=== PATIENT | female | born 1930 | race Caucasian/White ===

== ENCOUNTER 2017-04-29 20:29 | Emergency (ER) | payer BC, MEDICARE ==
[2017-04-29 21:15] LABS: BASOPHIL# 0.1 X 10^3uL (0.0-0.1); BASOPHILS 1.1 % (0.0-2.0); EOSINOPHILS# 0.5 X 10^3uL (0.0-0.4); HEMATOCRIT 45.2 % (36.0-48.0); HEMOGLOBIN 15.5 g/dL (12.0-16.0); LYMPHOCYTES 36.6 % (20.0-40.0); LYMPHOCYTES# 2.4 X 10^3uL (0.8-3.8); MEAN CELL VOLUME 88.4 fL (80.0-100.0); MEAN CORPUS. HGB CONCENTRATION 34.3 g/dL (32.0-36.0); MEAN CORPUSCULAR HEMOGLOBIN 30.3 pg (29.0-35.0); MEAN PLATELET VOLUME 8.1 fL (7.4-10.4); MONOCYTES 9.2 % (2.0-10.0); MONOCYTES# 0.6 X 10^3uL (0.2-1.0); NEUTROPHILS 46.1 % (54.0-75.0); PLATELET COUNT 204 X 10^3uL (130-440); RED BLOOD COUNT 5.11 X 10^6uL (4.20-6.10); RED CELL DISTRIBUTION WIDTH 13.2 % (11.5-14.5); WHITE BLOOD COUNT 6.6 X 10^3uL (3.9-10.7)
[2017-04-29 21:21] LABS: BLOOD UREA NITROGEN 18 mg/dL (7-17); CALCIUM 9.7 mg/dL (8.4-10.2); CHLORIDE 104 mmol/L (98-107); GLUCOSE 174 mg/dL (70-100); POTASSIUM 3.9 mmol/L (3.5-5.1); SODIUM 141 mmol/L (137-145)
--- NOTE | 2017-04-29 22:15 | RADIOLOGY REPORT ---
HISTORY: Shortness of breath. COMPARISON: None. FINDINGS: 2 views of the chest obtained. There is no consolidation. There is no pleural effusion. There is no pneumothorax. There is atherosclerosis of the thoracic aorta. Otherwise, the cardiomediastinal lauryn houette is normal. There is no abnormality of the pulmonary vessels. There is no focal lung parench ymal nodule. There is no bone lesion. Surgical clips are seen in the right axilla. IMPRESSION: No acute cardiopulmonary process. Final Electronic Signature: This report was electronically signed by Analisa Scales MD on 04/29/2017 10:13 PM. mihaela /
--- NOTE | 2017-04-29 22:22 | ER NURSING DOCUMENTATION ---
Nurse's Notes [facility] Name:Nicky Palacios Age:86 yrs Sex:Female :1930 Arrival Date:04/29/2017 Time:20:29 Bed4 Private MD: Diagnosis:Syncope Presentation: 04/29 20:33 Presenting complaint: Patient states: pt states she was waiting in line to use that bw2 bathroom and had a syncopal episode. pt has a reddened area to left side of forehead. pt denies being on blood thinners. Transition of care: patient was not received from another setting of care. Care prior to arrival: Saline lock initiated. 20:33 Acuity: CALVIN 3 bw2 20:33 Method Of Arrival: EMS: 410 bw2 20:49 Care prior to arrival: IV initiated. gauge and site 22G L hand Glucose check. 130. mk2 Triage Assessment: 20:36 General: Appears in no apparent distress, comfortable, Behavior is appropriate for age, bw2 cooperative. Pain: Complains of pain in forehead Pain currently is 4 out of 10 on a pain scale. Quality of pain is described as Pain began suddenly. Neuro: Reports a syncopal episode. Respiratory: No deficits noted. 21:00 Respiratory: Breath sounds are clear bilaterally. GI: No deficits noted. Denies mk2 diarrhea, pain. Derm: redness and raised area superior to the left eye. Historical: - Allergies: No known drug Allergies; - Home Meds: 1. lisinopril 10 mg oral tab 2. albuterol sulfate inhalation - PMHx: CANCER, BREAST; - PSHx: MASTECTOMY, RIGHT; - Tetanus: < 10 years. - Ebola Screening: : Patient negative for fever greater than or equal to 101.5 degrees Fahrenheit, and additional compatible Ebola Virus Disease symptoms. Patient denies exposure to infectious person. Patient denies travel to an Ebola-affected area in the 21 days before illness onset. No symptoms or risks identified at this time. . - Immunization history: Flu Vaccine < 1 year. - Social history: Smoking status: Patient states was never smoker of tobacco. Screenin:51 Infectious Disease Risk None. Abuse screen: Denies threats or abuse. Nutritional mk2 screening: No deficits noted. Assessment: 20:51 See Triage Assessment done by same RN. mk2 Vital Signs: 20:37 BP 188 / 80; Pulse 85; Resp 18; Temp 97.8(O); Pulse Ox 94% on R/A; Weight 81.65 kg; bw2 Height 5 ft. 6 in. (167.64 cm); Pain 4/10; 21:00 Pulse 78 MON; Resp 20; Pulse Ox 96% ; mk2 21:14 BP 164 / 61; mk2 22:00 BP 157 / 64; Pulse 74; Resp 15; Pulse Ox 95% on R/A; Pain 0/10; mk2 20:37 Body Mass Index 29.05 (81.65 kg, 167.64 cm) 2 ED Course: 20:29 EKG done. (by ED staff). mk2 20:30 Patient arrived in ED. ma1 20:35 Triage completed. bw2 20:35 Wilner Cox MD is Attending Physician. jm 20:49 Mckayla Gomes, CLARISSA is Primary Nurse. mk2 20:49 Arm band placed on Bed in low position Call Light in Reach Gowned HOB Elevated Side mk2 rails up x1. 20:51 Valuables Remains with patient. seaming inspector on. Pulse ox on. NIBP on. Ice pack to mk2 injury. Warm blanket given. 20:59 Labs drawn. (by ED staff). By Lab Staff. mk2 21:05 Patient moved to radiology. hz 21:12 Patient moved back from radiology. hz 21:58 Pt ambulates to restroom with steady gait. mk2 21:59 Urine collected. Clean catch specimen. mk2 22:21 PO fluids given. mk2 22:28 EKG attached mk2 Administered Medications: 21:15 Drug: NS 0.9% 1000 ml; Route: IV; Rate: bolus; Site: left hand; mk2 22:20 Follow up: IV Status: Infusion discontinued; IV Intake: 500ml mk2 Point of Care Testing: Urine Dip: 21:57 pH: 5.0; ; Specific [place]: 1.030; Ketones: Negative; Glucose: Negative; Protein: 1 mk2 mg/dL; Leukocytes: Trace; Nitrite: Negative ; Blood: Negative; Bilirubin: 1 mg/dL; Urobilinogen: Normal Intake: 22:20 IV: 500ml; Total: 500ml. mk2 Outcome: 22:00 Discharged to home ambulatory. mk2 22:00 Condition: improved 22:00 Discharge instructions given to patient, Instructed on discharge instructions, follow up and referral plans. medication usage. 22:04 Discharge ordered by MD. [place] 22:21 Patient left the ED. nba 04/30 12:23 Discharge F/U Call: Unable to reach: non-working number st Signatures: Pooja Hatch, RN RN Wilner Hagen MD MD jm Kruger, Meg, RN RN [email or web address] [facility] Elda Cha Melissa [facility]
--- NOTE | 2017-04-29 22:22 | ER PHYSICIAN DOCUMENTATION ---
Physician Documentation [facility] Name:Nicky Palacios Age:86 yrs Sex:Female :1930 Arrival Date:04/29/2017 Time:20:29 Bed4 Private MD: Wilner Ulloa Disposition: 04/29/17 22:04 Discharged to Home/Self Care. Impression: Syncope. - Condition is Good. - Discharge Instructions: SYNCOPE, Unk Cause. - Medical Reconciliation form form. - Follow up: Private Physician; When: As needed; Reason: Continuance of care. - Problem is new. - Symptoms have improved. HPI: 04/29 23:00 This 86 yrs old Female presents to ER via EMS with complaints of Fainting. jm 23:00 The patient has experienced syncope, collapsed, lost consciousness. Onset: The jm symptom(s)/episode began/occurred just prior to arrival. Duration: This was a single episode, that lasted 10 second(s). Context: occurred while the patient was standing. Associated injury: The patient did not suffer any apparent associated injury. Associated signs and symptoms: The patient has no apparent associated signs or symptoms. Current symptoms: Currently, the patient is not experiencing any symptoms. The patient has not experienced similar symptoms in the past. The patient has not recently seen a physician. Pt was waiting in a long line for the restroom and thinks she locked her knees for too ling. She got dizzy, vomited and then fainted. She woke up and stood up and felt better and decided to come in by EMS. EMS said her Vitals were stable. . Historical: - Allergies: No known drug Allergies; - Home Meds: 1. lisinopril 10 mg oral tab 2. albuterol sulfate inhalation - PMHx: CANCER, BREAST; - PSHx: MASTECTOMY, RIGHT; - Tetanus: < 10 years. - Ebola Screening: : Patient negative for fever greater than or equal to 101.5 degrees Fahrenheit, and additional compatible Ebola Virus Disease symptoms. Patient denies exposure to infectious person. Patient denies travel to an Ebola-affected area in the 21 days before illness onset. No symptoms or risks identified at this time. . - Immunization history: Flu Vaccine < 1 year. - Social history: Smoking status: Patient states was never smoker of tobacco. ROS: 23:00 Constitutional: Negative for chills, fatigue, fever. 23:00 Cardiovascular: Negative for chest pain. 23:00 Respiratory: Negative for cough, shortness of breath. 23:00 Abdomen/GI: Positive for nausea, vomiting, Negative for abdominal pain, diarrhea. 23:00 Neuro: Positive for syncope, Negative for dizziness, headache, weakness. Exam: 23:00 Constitutional: The patient appears alert, awake, comfortable. 23:00 Eyes: Periorbital structures: appear normal, Pupils: equal, round, and reactive to light and accomodation, Extraocular movements: intact throughout. 23:00 ENT: Mouth: Oral mucosa: dry, Voice: is normal. 23:00 Cardiovascular: Rate: normal, Rhythm: regular. 23:00 Respiratory: Respirations: normal, Breath sounds: are normal. 23:00 Abdomen/GI: Bowel sounds: normal, Palpation: abdomen is soft and non-tender. 23:00 Back: CVA tenderness, is absent, vertebral tenderness, is not appreciated. 23:00 Skin: Appearance: Color: pink, Turgor: is excellent. 23:00 Neuro: Mentation: is normal, Memory: is normal, Gait: is steady. 23:00 Psych: Behavior/mood is pleasant, cooperative, Affect is calm. Vital Signs: 20:37 BP 188 / 80; Pulse 85; Resp 18; Temp 97.8(O); Pulse Ox 94% on R/A; Weight 81.65 kg; bw2 Height 5 ft. 6 in. (167.64 cm); Pain 4/10; 21:00 Pulse 78 MON; Resp 20; Pulse Ox 96% ; mk2 21:14 BP 164 / 61; mk2 22:00 BP 157 / 64; Pulse 74; Resp 15; Pulse Ox 95% on R/A; Pain 0/10; mk2 20:37 Body Mass Index 29.05 (81.65 kg, 167.64 cm) bw2 MDM: 20:35 Patient medically screened. 22:28 EKG attached 2 23:00 Differential Diagnosis: cardiac arrhythmia, idiopathic syncope. Neurological jm re-evaluation: normal neurological exam including cranial nerves, orientation, mentation, motor and sensory exam, cerebellar testing, GCS normal, and normal gait. Data reviewed: vital signs, nurses notes, old medical records, lab test result(s), EKG, radiologic studies, and as a result, I will discharge patient. Test interpretation: by ED physician or midlevel provider: plain radiologic studies, ECG. Counseling: I had a detailed discussion with the patient and/or guardian regarding: the historical points, exam findings, and any diagnostic results supporting the discharge/admit diagnosis, lab results, radiology results, the need for outpatient follow up. ECG:. Response to treatment: the patient's symptoms have markedly improved after treatment. ED course: Pt better after IVF and PO fluid. Work up shows mild dehydration and pt feels dehydrated. Pt has a PCP she can f/u w. I feel admission for this issue would be very low yield and pt wishes to go home. DC home. . 04/29 21:16 Order name: CBC AUTO DIF, MDIF/RMOR IF IND; Complete Time: 21:33 [facility] 04/29 21:29 Order name: BASIC METABOLIC PANEL; Complete Time: 21:33 [facility] 04/29 22:16 Order name: CXR 2V [id number] [facility] 04/29 20:36 Order name: 12-lead EKG; Complete Time: 20:59 04/29 20:36 Order name: Continuous Cardiac Monitoring; Complete Time: 20:59 04/29 20:36 Order name: I & O; Complete Time: 20:59 04/29 20:36 Order name: NPO; Complete Time: 20:59 04/29 20:36 Order name: Pulse Ox Continuous; Complete Time: 20:59 EC:00 Rhythm is regular. QRS [place] is Normal. PA interval is normal. QRS interval is normal. QT interval is normal. No Q waves. T waves are Normal. No ST changes noted. Dispensed Medications: 21:15 Drug: NS 0.9% 1000 ml; Route: IV; Rate: bolus; Site: left hand; mk2 22:20 Follow up: IV Status: Infusion discontinued; IV Intake: 500ml mk2 Point of Care Testing: Urine Dip: 21:57 pH: 5.0; ; Specific [place]: 1.030; Ketones: Negative; Glucose: Negative; Protein: 1 mk2 mg/dL; Leukocytes: Trace; Nitrite: Negative ; Blood: Negative; Bilirubin: 1 mg/dL; Urobilinogen: Normal Signatures: Wilner Cox MD MD jm Kruger, Meg, RN RN 2 Ngo[facility] Guo bw2
== END 2017-04-29 22:22 | disposition home or self-care (01) ==
LOC: ER 20:29
DX: R55 Syncope and collapse (principal); R11.2 Nausea with vomiting, unspecified; E86.0 Dehydration; Z79.899 Other long term (current) drug therapy; Z85.3 Personal history of malignant neoplasm of breast
CPT/HCPCS: 36415; 71020; 80048; 85025; 93005; 93010; 96360; 99284; 99285; A0425; A0429